=== PATIENT | male | born 1980 | race Caucasian/White ===

== ENCOUNTER 2022-10-03 22:49 | Emergency (ER) | payer MEDICAID ==
[~2022-10-03] VITALS: Ht 175.3 cm; Wt 95.0 kg
[2022-10-04] MEDS ORDERED: ketorolac trometh inj. 60 MG/2 ML VIAL IM ONE (00:50)
[2022-10-04] MEDS ORDERED: orphenadrine citrate 60mg/2ml inj. IM ONE (00:50)
[2022-10-04] MEDS ORDERED: BACL-11 PO (00:55)
[2022-10-04 01:14] VITALS: BP 132/100
== END 2022-10-04 01:17 | disposition home or self-care (01) ==
LOC: ER 22:50
DX: G89.29 Other chronic pain (principal); M54.50 Low back pain, unspecified; Z88.8 Allergy status to other drugs, medicaments and biological substances
CPT/HCPCS: 96372; 99284; J1885; J2360

== ENCOUNTER 2022-10-15 23:47 | Emergency (ER) | payer MEDICAID ==
[~2022-10-15] VITALS: Ht 172.7 cm; Wt 95.5 kg
[~2022-10-15 23:47] MED LIST: BACL-11 PO
[2022-10-16 02:30] VITALS: BP 167/98
[2022-10-16] MEDS ORDERED: LIDOcaine 5% patch TP SCH (05:15)
[2022-10-16] MEDS ORDERED: ketorolac trometh inj. 60 MG/2 ML VIAL IM ONE (05:15)
[2022-10-16] MEDS ORDERED: IBUP-1984 PO (05:16)
[2022-10-16] MEDS ORDERED: LIDO1ADH67 TD (05:16)
== END 2022-10-16 05:40 | disposition home or self-care (01) ==
LOC: ER 23:48
DX: M54.59 Other low back pain (principal); G89.29 Other chronic pain; M54.9 Dorsalgia, unspecified; Z79.899 Other long term (current) drug therapy
CPT/HCPCS: 96372; 99283; J1885